=== PATIENT | female | born 1985 | race African-American/Black ===

== ENCOUNTER 2018-09-11 07:07 | Emergency (ER) | payer OTHER, MEDICAID | END 2018-09-11 07:31 | disposition home or self-care (01) | LOC: FTE 07:07 | DX: S40.862A Insect bite (nonvenomous) of left upper arm, initial encounter (principal); J45.909 Unspecified asthma, uncomplicated; W57.XXXA Bitten or stung by nonvenomous insect and other nonvenomous arthropods, initial encounter; Y92.039 Unspecified place in apartment as the place of occurrence of the external cause | CPT/HCPCS: 99282; Z7502 ==